=== PATIENT | female | born 1950 | race Native Hawaiian/Other Pacific Islander ===

== ENCOUNTER 2016-06-09 14:43 | Observation (INO) | payer OTHER ==
[~2016-06-09] VITALS: Ht 165.1 cm; Wt 99.8 kg
[~2016-06-09 14:43] MED LIST: AMITRIPTYLIN75 MG PO; AMOX500C85 PO; ASA LOW DOSE81 MG PO; CELEBREX200 MG PO; HYDR200T3 PO; LEVAQUIN500 MG OR; LEVE500T5 PO; LEVO0.0529 PO; LIPITOR20 MG PO; LISI20TA11 PO; METF500T PO; NORTRIPTYLIN10 MG OR; SERT100T PO; TRAZ50TA36 PO; VICODIN HP1 TA1 PO
[2016-06-09 15:55] VITALS: BP 129/57; TEMP 98.2; Ht 165.1 cm; Wt 99.8 kg
[2016-06-09] MEDS ORDERED: KEPPRA1000 MG PO (16:18)
[2016-06-09] MEDS ORDERED: GLIP10TA55 PO (16:21)
[2016-06-09 17:02] LABS: PLATELET COUNT 193 K/uL (152-353)
[2016-06-09 17:26] LABS: POTASSIUM 5.8 mmol/L (3.6-5.2); SODIUM 130 mmol/L (136-145)
[2016-06-09 17:33] LABS: PARTIAL THROMBOPLASTIN TIME 23.8 SECONDS (24.5-33.6)
[2016-06-09 20:00] VITALS: BP 126/56; TEMP 98.5
[2016-06-10 00:42] VITALS: BP 132/62; TEMP 98.4
[2016-06-10 05:58] VITALS: BP 103/56; TEMP 97.9
[2016-06-10 08:00] VITALS: BP 132/51; TEMP 97.9
[2016-06-10 08:28] LABS: PLATELET COUNT 185 K/uL (152-353)
[2016-06-10 08:42] LABS: POTASSIUM 5.2 mmol/L (3.6-5.2)
[2016-06-10 12:00] VITALS: BP 141/70; TEMP 97.5
== END 2016-06-10 12:38 | disposition home or self-care (01) ==
LOC: MED/SURG 14:43
PROVIDERS: Emergency Medicine; ADMIT Internal Medicine
DX: R07.89 Other chest pain (principal); I10 Essential (primary) hypertension; E11.9 Type 2 diabetes mellitus without complications; I45.19 Other right bundle-branch block; Q24.8 Other specified congenital malformations of heart; G47.33 Obstructive sleep apnea (adult) (pediatric); K21.9 Gastro-esophageal reflux disease without esophagitis; R06.02 Shortness of breath
CPT/HCPCS: 80053; 82150; 82550; 82948; 83690; 84484; 85027; 85610; 85730; 93005; 96372; 99220; G0378; G0379; J1650

== ENCOUNTER 2016-07-22 07:35 | Outpatient (CLI) | payer OTHER ==
[~2016-07-22 07:35] MED LIST changes: +GLIP10TA55 PO; +KEPPRA1000 MG PO
[2016-07-22 08:03] LABS: POTASSIUM 4.7 mmol/L (3.6-5.2)
== END 2016-07-22 19:27 | disposition home or self-care (01) ==
LOC: LABW 07:35
PROVIDERS: Internal Medicine Cardiovascular Disease
DX: Z79.899 Other long term (current) drug therapy (principal); Z51.81 Encounter for therapeutic drug level monitoring
CPT/HCPCS: 36415; 80053

== ENCOUNTER 2016-08-03 15:21 | Outpatient (CLI) | payer OTHER | END 2016-08-03 19:22 | disposition home or self-care (01) | LOC: LAB 15:21 | DX: L02.214 Cutaneous abscess of groin (principal) | CPT/HCPCS: 87070; 87077; 87185; 87186; 87205 ==

== ENCOUNTER 2016-12-19 13:21 | Outpatient (CLI) | payer OTHER ==
[2016-12-19 13:38] LABS: PLATELET COUNT 185 K/uL (152-353)
[2016-12-19 14:02] LABS: POTASSIUM 4.6 mmol/L (3.6-5.2)
== END 2016-12-19 19:29 | disposition home or self-care (01) ==
LOC: LAB 13:21
PROVIDERS: Physician Assistant
DX: E03.8 Other specified hypothyroidism (principal); E78.00 Pure hypercholesterolemia, unspecified; I10 Essential (primary) hypertension; E11.9 Type 2 diabetes mellitus without complications
CPT/HCPCS: 80053; 80061; 83036; 84439; 84443; 85027

== ENCOUNTER 2017-01-27 10:31 | Outpatient (CLI) | payer OTHER | END 2017-01-27 11:35 | disposition home or self-care (01) | LOC: MAMMO 10:31 | DX: Z12.31 Encounter for screening mammogram for malignant neoplasm of breast (principal) ==

== ENCOUNTER 2017-07-26 14:02 | Outpatient (CLI) | payer OTHER ==
[2017-07-26 14:22] LABS: PLATELET COUNT 266 K/uL (152-353)
[2017-07-26 14:50] LABS: POTASSIUM 4.9 mmol/L (3.6-5.2)
== END 2017-07-26 21:41 | disposition home or self-care (01) ==
LOC: LABW 14:02
PROVIDERS: Internal Medicine
DX: E11.69 Type 2 diabetes mellitus with other specified complication (principal)
CPT/HCPCS: 36415; 80053; 80061; 83036; 84443; 85027; 85651; 86039; 86140; 86430

== ENCOUNTER 2017-10-25 09:41 | Outpatient (CLI) | payer OTHER | END 2017-10-25 23:18 | disposition home or self-care (01) | LOC: RESP 09:41 | DX: R01.1 Cardiac murmur, unspecified (principal) | CPT/HCPCS: 93306 ==

== ENCOUNTER 2017-12-27 11:52 | Outpatient (CLI) | payer OTHER | END 2017-12-27 22:13 | disposition home or self-care (01) | LOC: LABW 11:52 | DX: G40.209 Localization-related (focal) (partial) symptomatic epilepsy and epileptic syndromes with complex partial seizures, not intractable, without status epilepticus (principal); G43.009 Migraine without aura, not intractable, without status migrainosus | CPT/HCPCS: 36415; 85651 ==

== ENCOUNTER 2018-01-31 10:57 | Outpatient (CLI) | payer OTHER | END 2018-01-31 19:33 | disposition home or self-care (01) | LOC: RAD 10:57 → MAMMO 11:30 → RAD 19:33 | DX: Z12.31 Encounter for screening mammogram for malignant neoplasm of breast (principal); Z78.0 Asymptomatic menopausal state ==

== ENCOUNTER 2018-02-13 13:10 | Outpatient (CLI) | payer OTHER | END 2018-02-13 22:30 | disposition home or self-care (01) | LOC: CT 13:10 | DX: G43.009 Migraine without aura, not intractable, without status migrainosus (principal); G40.209 Localization-related (focal) (partial) symptomatic epilepsy and epileptic syndromes with complex partial seizures, not intractable, without status epilepticus ==

== ENCOUNTER 2018-10-01 11:18 | Outpatient (CLI) | payer OTHER | END 2018-10-01 20:23 | disposition home or self-care (01) | LOC: RAD 11:18 | DX: M25.511 Pain in right shoulder (principal) ==

== ENCOUNTER 2018-11-02 08:14 | Outpatient (CLI) | payer OTHER | END 2018-11-02 21:34 | disposition home or self-care (01) | LOC: MRI 08:14 | DX: M25.511 Pain in right shoulder (principal); M50.222 Other cervical disc displacement at C5-C6 level ==

== ENCOUNTER 2019-01-02 08:59 | Outpatient (CLI) | payer OTHER ==
[2019-01-02 09:30] LABS: POTASSIUM 4.9 mmol/L (3.6-5.2)
== END 2019-01-02 23:44 | disposition home or self-care (01) ==
LOC: LABW 08:59
PROVIDERS: Internal Medicine
DX: E11.9 Type 2 diabetes mellitus without complications (principal)
CPT/HCPCS: 36415; 80053; 80061; 82043; 82570; 83036

== ENCOUNTER 2019-01-22 09:32 | Outpatient (CLI) | payer OTHER ==
[2019-01-22 09:54] LABS: PLATELET COUNT 225 K/uL (152-353)
[2019-01-22 10:21] LABS: POTASSIUM 4.4 mmol/L (3.6-5.2)
== END 2019-01-22 23:59 | disposition home or self-care (01) ==
LOC: LABW 09:32
PROVIDERS: Internal Medicine
DX: E11.8 Type 2 diabetes mellitus with unspecified complications (principal)
CPT/HCPCS: 36415; 80053; 80061; 81000; 82043; 82570; 83036; 84439; 84443; 85027

== ENCOUNTER 2019-04-03 09:30 | Outpatient (CLI) | payer OTHER | END 2019-04-03 21:36 | disposition home or self-care (01) | LOC: LABW 09:30 | DX: G40.209 Localization-related (focal) (partial) symptomatic epilepsy and epileptic syndromes with complex partial seizures, not intractable, without status epilepticus (principal) | CPT/HCPCS: 36415; 82542 ==

== ENCOUNTER 2019-07-18 09:08 | Outpatient (CLI) | payer OTHER | END 2019-07-18 19:10 | disposition home or self-care (01) | LOC: LABW 09:08 | DX: R70.0 Elevated erythrocyte sedimentation rate (principal); G40.209 Localization-related (focal) (partial) symptomatic epilepsy and epileptic syndromes with complex partial seizures, not intractable, without status epilepticus; G43.009 Migraine without aura, not intractable, without status migrainosus | CPT/HCPCS: 36415; 85651; 86038 ==

== ENCOUNTER 2019-09-25 09:39 | Outpatient (CLI) | payer OTHER ==
[2019-09-25 10:34] LABS: PLATELET COUNT 220 K/uL (152-353)
[2019-09-25 10:42] LABS: POTASSIUM 4.9 mmol/L (3.6-5.2)
== END 2019-09-25 21:36 | disposition home or self-care (01) ==
LOC: LABW 09:39
PROVIDERS: Podiatrist Foot & Ankle Surgery
DX: Z01.812 Encounter for preprocedural laboratory examination (principal); E11.69 Type 2 diabetes mellitus with other specified complication
CPT/HCPCS: 36415; 80053; 83036; 85027; 93005

== ENCOUNTER 2019-10-18 10:21 | Outpatient (CLI) | payer OTHER | END 2019-10-18 23:05 | disposition home or self-care (01) | LOC: MRI 10:21 | DX: M84.375A Stress fracture, left foot, initial encounter for fracture (principal) ==

== ENCOUNTER 2019-11-22 18:49 | Emergency (ER) | payer OTHER ==
[~2019-11-22] VITALS: Ht 165.1 cm; Wt 93.4 kg
[2019-11-22 20:15] LABS: PLATELET COUNT 208 K/uL (152-353)
[2019-11-22 20:19] LABS: POTASSIUM 5.4 mmol/L (3.6-5.2)
[2019-11-22 21:23] VITALS: BP 158/67; TEMP 98.8
== END 2019-11-22 21:23 | disposition home or self-care (01) ==
LOC: ED 18:49
PROVIDERS: Family Medicine
DX: M06.80 Other specified rheumatoid arthritis, unspecified site (principal); E11.40 Type 2 diabetes mellitus with diabetic neuropathy, unspecified; Z79.84 Long term (current) use of oral hypoglycemic drugs; M79.674 Pain in right toe(s)
CPT/HCPCS: 36415; 80053; 81000; 84550; 85027; 96372; 99283; J1885

== ENCOUNTER 2019-12-11 10:17 | Outpatient (CLI) | payer OTHER ==
[2019-12-11 17:09] LABS: POTASSIUM 5.1 mmol/L (3.6-5.2)
== END 2019-12-11 20:24 | disposition home or self-care (01) ==
LOC: LABW 10:17
PROVIDERS: Nurse Practitioner Family
DX: E11.65 Type 2 diabetes mellitus with hyperglycemia (principal); I10 Essential (primary) hypertension; E78.49 Other hyperlipidemia
CPT/HCPCS: 36415; 80053; 80061; 82043; 82570; 84443

== ENCOUNTER 2020-02-27 09:00 | Outpatient (CLI) | payer OTHER ==
[2020-02-27 09:46] LABS: POTASSIUM 4.4 mmol/L (3.6-5.2)
[2020-02-27 09:54] LABS: PLATELET COUNT 226 K/uL (152-353)
== END 2020-02-27 19:47 | disposition home or self-care (01) ==
LOC: LABW 09:00
PROVIDERS: Internal Medicine
DX: E11.9 Type 2 diabetes mellitus without complications (principal)
CPT/HCPCS: 36415; 80053; 80061; 81000; 82043; 82570; 83036; 84439; 84443; 85027

== ENCOUNTER 2020-05-12 12:50 | Outpatient (CLI) | payer OTHER | END 2020-05-12 22:00 | disposition home or self-care (01) | LOC: RESP 12:50 | PROVIDERS: ATTEND Specialist | DX: G40.209 Localization-related (focal) (partial) symptomatic epilepsy and epileptic syndromes with complex partial seizures, not intractable, without status epilepticus (principal) ==

== ENCOUNTER 2020-06-23 10:22 | Outpatient (CLI) | payer OTHER ==
[2020-06-23 11:33] LABS: PLATELET COUNT 211 K/uL (152-353)
[2020-06-23 11:54] LABS: POTASSIUM 4.9 mmol/L (3.6-5.2)
== END 2020-06-23 21:32 | disposition home or self-care (01) ==
LOC: LABW 10:22
PROVIDERS: ATTEND Internal Medicine
DX: E11.22 Type 2 diabetes mellitus with diabetic chronic kidney disease (principal); N18.31 Chronic kidney disease, stage 3a; R53.83 Other fatigue; D64.89 Other specified anemias; E53.8 Deficiency of other specified B group vitamins
CPT/HCPCS: 36415; 80053; 81000; 82306; 82330; 82570; 82607; 82728; 82746; 83036; 83540; 83550; 83735; 83970; 84100; 84155; 84439; 84443; 85027; 85652; 86038

== ENCOUNTER 2020-09-08 10:42 | Outpatient (CLI) | payer OTHER ==
[2020-09-08 11:14] LABS: POTASSIUM 4.8 mmol/L (3.6-5.2)
== END 2020-09-08 21:09 | disposition home or self-care (01) ==
LOC: LAB 10:42
PROVIDERS: ATTEND Internal Medicine
DX: E11.9 Type 2 diabetes mellitus without complications (principal); E03.8 Other specified hypothyroidism; G40.909 Epilepsy, unspecified, not intractable, without status epilepticus; F41.1 Generalized anxiety disorder
CPT/HCPCS: 80053; 80061; 81000; 82043; 82542; 84439; 84443

== ENCOUNTER 2020-09-09 07:55 | Outpatient (CLI) | payer OTHER ==
[2020-09-09 08:22] LABS: PLATELET COUNT 218 K/uL (152-353)
== END 2020-09-09 21:28 | disposition home or self-care (01) ==
LOC: LABW 07:55
PROVIDERS: ATTEND Internal Medicine
DX: G40.909 Epilepsy, unspecified, not intractable, without status epilepticus (principal); E11.9 Type 2 diabetes mellitus without complications; F41.1 Generalized anxiety disorder
CPT/HCPCS: 36415; 83036; 85027

== ENCOUNTER 2020-12-23 08:16 | Outpatient (CLI) | payer OTHER ==
[2020-12-23 08:43] LABS: PLATELET COUNT 201 K/uL (152-353)
== END 2020-12-23 23:27 | disposition home or self-care (01) ==
LOC: LABW 08:16 → MAMMO 11:00 → LABW 23:27
PROVIDERS: ATTEND Internal Medicine
DX: Z00.00 Encounter for general adult medical examination without abnormal findings (principal); Z12.31 Encounter for screening mammogram for malignant neoplasm of breast; Z13.820 Encounter for screening for osteoporosis; N95.8 Other specified menopausal and perimenopausal disorders; E11.22 Type 2 diabetes mellitus with diabetic chronic kidney disease; E55.9 Vitamin D deficiency, unspecified
CPT/HCPCS: 36415; 80053; 80061; 81000; 82043; 82306; 82570; 83036; 84439; 84443; 85027

== ENCOUNTER 2021-03-30 09:22 | Outpatient (CLI) | payer OTHER | END 2021-03-30 21:19 | disposition home or self-care (01) | LOC: RAD 09:22 | PROVIDERS: ATTEND Orthopaedic Surgery | DX: M25.512 Pain in left shoulder (principal) ==

== ENCOUNTER 2021-04-09 08:53 | Outpatient (CLI) | payer OTHER | END 2021-04-09 20:48 | disposition home or self-care (01) | LOC: MRI 08:53 | PROVIDERS: ATTEND Orthopaedic Surgery | DX: M75.102 Unspecified rotator cuff tear or rupture of left shoulder, not specified as traumatic (principal) ==

== ENCOUNTER 2021-08-18 09:21 | Outpatient (CLI) | payer OTHER ==
[2021-08-18 10:22] LABS: PLATELET COUNT 177 K/uL (152-353)
[2021-08-18 10:39] LABS: POTASSIUM 4.5 mmol/L (3.6-5.2)
== END 2021-08-18 18:51 | disposition home or self-care (01) ==
LOC: LABW 09:21
PROVIDERS: ATTEND Internal Medicine
DX: E11.22 Type 2 diabetes mellitus with diabetic chronic kidney disease (principal); N18.30 Chronic kidney disease, stage 3 unspecified; E55.9 Vitamin D deficiency, unspecified
CPT/HCPCS: 36415; 80053; 81000; 82043; 82306; 82330; 82570; 83036; 83735; 84100; 84155; 85027

== ENCOUNTER 2021-09-14 08:25 | Outpatient (CLI) | payer OTHER | END 2021-09-14 18:51 | disposition home or self-care (01) | LOC: MAMMO 08:25 | PROVIDERS: ATTEND Internal Medicine | DX: N63.20 Unspecified lump in the left breast, unspecified quadrant (principal); N64.59 Other signs and symptoms in breast | CPT/HCPCS: G0279 ==

== ENCOUNTER 2021-11-18 08:22 | Outpatient (CLI) | payer OTHER ==
[2021-11-18 08:44] LABS: PLATELET COUNT 160 K/uL (152-353)
[2021-11-18 09:04] LABS: POTASSIUM 4.4 mmol/L (3.6-5.2)
== END 2021-11-18 19:51 | disposition home or self-care (01) ==
LOC: LABW 08:22
PROVIDERS: ATTEND Internal Medicine
DX: E11.9 Type 2 diabetes mellitus without complications (principal)
CPT/HCPCS: 36415; 80053; 80061; 81002; 82043; 83036; 84439; 84443; 85027

== ENCOUNTER 2022-01-13 09:19 | Outpatient (CLI) | payer OTHER ==
[2022-01-13 09:44] LABS: PLATELET COUNT 176 K/uL (152-353)
[2022-01-13 09:54] LABS: POTASSIUM 4.5 mmol/L (3.6-5.2)
== END 2022-01-13 21:20 | disposition home or self-care (01) ==
LOC: LABW 09:19
PROVIDERS: ATTEND Internal Medicine
DX: E11.22 Type 2 diabetes mellitus with diabetic chronic kidney disease (principal); N18.31 Chronic kidney disease, stage 3a; R53.83 Other fatigue
CPT/HCPCS: 36415; 80053; 81002; 82306; 82330; 82570; 82607; 82746; 83036; 83735; 83970; 84100; 84156; 85027

== ENCOUNTER 2022-04-13 09:22 | Outpatient (CLI) | payer OTHER | END 2022-04-13 23:57 | disposition home or self-care (01) | LOC: MAMMO 09:22 | PROVIDERS: ATTEND Internal Medicine | DX: Z12.31 Encounter for screening mammogram for malignant neoplasm of breast (principal) ==

== ENCOUNTER 2022-04-19 08:16 | Outpatient (CLI) | payer OTHER | END 2022-04-19 20:10 | disposition home or self-care (01) | LOC: US 08:16 | PROVIDERS: ATTEND Internal Medicine Gastroenterology | DX: K76.0 Fatty (change of) liver, not elsewhere classified (principal) ==

== ENCOUNTER 2022-06-06 11:57 | Outpatient (CLI) | payer OTHER ==
[2022-06-06 12:26] LABS: PLATELET COUNT 220 K/uL (152-353)
[2022-06-06 13:26] LABS: POTASSIUM 4.3 mmol/L (3.6-5.2)
== END 2022-06-06 21:38 | disposition home or self-care (01) ==
LOC: LABW 11:57
PROVIDERS: ATTEND Internal Medicine
DX: E11.22 Type 2 diabetes mellitus with diabetic chronic kidney disease (principal); N18.31 Chronic kidney disease, stage 3a; R53.83 Other fatigue
CPT/HCPCS: 36415; 80053; 81000; 82306; 82330; 82570; 82607; 82746; 83036; 83735; 83970; 84100; 84156; 85027; 87077; 87086; 87088; 87186